=== PATIENT | female | born 1965 ===

== ENCOUNTER → 2017-07-15 | Outpatient (CLI) | payer SELFPAY ==
[~2017-07-15] VITALS: Ht 160 cm; Wt 82.0 kg
[2017-07-15 10:57] VITALS: BP 119/86
== END | disposition home or self-care (01) ==
LOC: SRCNTR 10:39
PROVIDERS: ATTEND Internal Medicine Clinical Cardiac Electrophysiology
DX: Z45.02 Encounter for adjustment and management of automatic implantable cardiac defibrillator (principal)
CPT/HCPCS: G0463